=== PATIENT | female | born 1955 | race Caucasian/White ===

== ENCOUNTER 2020-07-12 06:30 | Day surgery (SDC) | payer OTHER ==
[~2020-07-12] VITALS: Ht 172.7 cm; Wt 63.5 kg
[~2020-07-12 06:30] MED LIST: LEVOTHYROXINE75 MCG PO
--- NOTE | 2020-07-12 10:57 | OR ---
[facility] [address], [place] [address] Signed DATE OF OPERATION: 07/12/2020 SURGEON: Breonna Huff MD DATE OF PROCEDURE: 07/12/2020 PREOPERATIVE DIAGNOSES: 1. Anemia. 2. Guaiac-positive stool. 3. Mother with colonic polyps in her late 70s or early 80s. POSTOPERATIVE DIAGNOSES: 1. A 7 mm polyp at 100 cm (transverse colon). 2. A 7 mm polyp opposite ileocecal valve/cecum (snare). 3. A 5 mm hepatic flexure polyp. 4. A 4 mm polyp at 7 cm. 5. Wvujgpd-is-vzessdys sigmoid diverticulosis. PROCEDURES: 1. Colonoscopy. 2. Snare polypectomy. 3. Hot biopsy. ESTIMATED BLOOD LOSS: None. INDICATIONS: Lottie is a 64-year-old female, who asked to see me with respect to her anemia and guaiac-positive stool. We also know her mother had colonic polyps removed in her late 70s or early 80s. Lottie tells me she has not been to a doctor in probably 45 years. She is very nervous about having the colonoscopy done. She also uses marijuana on a daily basis. I wonder that our simple Versed and fentanyl might not be enough to put her sleep. In fact, that proved to be true, we had to bring our anesthesia provider. We also gave her a pamphlet on colonoscopy in the office, and I went over that together in detail. She understands the nature of the test along with the risks including, but not limited to gas bloating, crampy abdominal pain, bleeding, perforation requiring surgery, and missed diagnosis. She had expressed understanding and wished to proceed. She understands there is risk including, but not limited to gas bloating, crampy abdominal pain, bleeding, perforation requiring surgery, and missed diagnosis. She Electronically Signed By: BREONNA HUFF MD 07/12/20 1057 PATIENT NAME: LOTTIE DEMARCO OPERATIVE REPORT DATE OF : 57 REPORT #: [id number] PHYSICIAN: BREONNA HUFF MD PCP: EDITH FLORES MD REPORT IS CONFIDENTIAL AND NOT TO BE RELEASED WITHOUT AUTHORIZATION [facility] [address], [place] [address] Signed expressed understanding and wished to proceed. PROCEDURE NOTE: Lottie was taken into our endoscopy suite and placed in the left lateral decubitus position, it was clear she was quite nervous. She was given 5 mg of Versed and 100 mcg of fentanyl. We could even get into the sigmoid colon. She was wide awake and talking to us and moving about the table. Consequently, we asked our anesthesia provider come and help us with monitored anesthesia care and infusion of propofol. In the end, that proved to be very allen as she took a large amount of propofol. A digital rectal exam had been done and this was unremarkable. The adult colonoscope was inserted and advanced under direct visualization of camera into the cecum itself. It took a few minutes to get through her somewhat narrow and tortuous sigmoid colon. Her prep was good. We could see the appendiceal orifice and the ileocecal valve. Opposite the ileocecal valve was a 7 mm polyp, which we removed with the help of the snare and hot biopsy forceps. It was captured in our trap and sent off to the Pathology Department. We also found a polyp coming in at around 100 cm that we removed with a hot biopsy forceps. We think it is in the transverse colon, but it is possible it is in the left colon. We never saw that biopsy site on our way back. We also took out a small 5 mm polyp at the hepatic flexure, and then a small 4 mm polyp at 7 cm in the rectum. She does have sigmoid diverticulosis. They were gbnxymm-kb-mmexzdxn in size, ueozasa-lk-uleqhkov in number, and scattered about. Upon retroflexion of scope, there was really no additional pathology noted above the anal canal. Overall, Lottie tolerated her procedure quite well. RECOMMENDATIONS: I will see Lottie back in my office in 7 to 14 days to review her results. It looks like she will be on the 5-year rotation. Breonna Huff MD ALB/MODL /[id number] cc: MD Breonna HINKLE MD Electronically Signed By: BREONNA HUFF MD 07/12/20 1057 PATIENT NAME: LOTTIE DEMARCO OPERATIVE REPORT DATE OF : 57 REPORT #: [id number] PHYSICIAN: BREONNA HUFF MD PCP: EDITH FLORES MD REPORT IS CONFIDENTIAL AND NOT TO BE RELEASED WITHOUT AUTHORIZATION [address] [address] Signed Copies: BREONNA HUFF MD ~ Electronically Signed By: BREONNA HUFF MD 07/12/20 1057 PATIENT NAME: LOTTIE DEMARCO OPERATIVE REPORT DATE OF : 57 REPORT #: [id number] PHYSICIAN: BREONNA HUFF MD PCP: EDITH FLORES MD REPORT IS CONFIDENTIAL AND NOT TO BE RELEASED WITHOUT AUTHORIZATION
--- NOTE | 2020-07-13 15:19 | PATH ---
[facility] [address] [place], [place] [address] Signed SPECIMEN(S): A TRANSVERSE POLYP SPECIMEN(S): B CECAL POLYP SPECIMEN(S): C HEPATIC FLEXURE POLYP SPECIMEN(S): D COLON POLYP AT 7 CM SPECIMEN SOURCE: A. TRANSVERSE POLYP B. CECAL POLYP C. HEPATIC FLEXURE POLYP D. COLON POLYP AT 7 CM CLINICAL HISTORY: Pre: Anemia, guaiac positive stool. Post: Polypectomy x4, diverticulosis. Colonoscopy. MICROSCOPIC DESCRIPTION: Histologic sections of all submitted blocks are examined by light microscopy. These findings, together with the gross examination, support the pathologic diagnosis. FINAL PATHOLOGIC DIAGNOSIS: A. Colon, transverse, polyp, polypectomy: - Fragments of tubular adenoma. - Negative for high-grade dysplasia or malignancy. B. Colon, cecum, polyp, polypectomy: - Fragments of tubulovillous adenoma. - Negative for high-grade dysplasia or malignancy. C. Colon, hepatic flexure, polyp, polypectomy: - Colonic mucosa with no histopathologic abnormality. - Negative for dysplasia or malignancy. D. Colon, polyp at 7 cm, polypectomy: - Hyperplastic polyp. - Negative for dysplasia or malignancy. NAL:cml:C2NR GROSS DESCRIPTION: Four specimens are received in four containers, labeled "CHALO." A. The specimen, labeled "CHALO, transverse colon polyp," is received in formalin and consists of two chavez soft tissue fragment(s) that measure 0.2 cm in greatest dimension. The specimen is entirely submitted in cassette (A1). B. The specimen, labeled "CHALO, cecum polyp," is received in formalin and PATIENT NAME: LOTTIE DEMARCO PATHOLOGY DATE OF : 57 REPORT #: [id number] PHYSICIAN: MARQUES PATHOLOGY PCP: EDITH FOLRES MD REPORT IS CONFIDENTIAL AND NOT TO BE RELEASED WITHOUT AUTHORIZATION [facility] [address] [place] [address] Signed consists of three chavez soft tissue fragment(s) that measure 0.6 cm in greatest dimension. The biggest tissue fragment is inked and bisected. The specimen is entirely submitted in cassette (B1). C. The specimen, labeled "CHALO, hepatic flexure polyp," is received in formalin and consists of one chavez soft tissue fragment that measures 0.1 cm in greatest dimension. The specimen is entirely submitted in cassette (C1). D. The specimen, labeled "CHALO, colon polyp at 7 cm," is received in formalin and consists of one chavez soft tissue fragment that measures 0.2 cm in greatest dimension. The specimen is entirely submitted in cassette (D1). JS (under the direct supervision of a pathologist) The Gross Description was prepared using a voice recognition system. The report was reviewed for accuracy; however, sound-alike word errors, addition and/or deletions may occur. If there is any question about this report, please contact Client Services. PERFORMING LABORATORY: The technical component was performed by [facility] [address] (Heel Emery Buffer: Ayla Mendoza MD; CLIA# [id number]). [facility] [address] [address] (CLIA# [id number]). Diagnostician: Vonda Vann MD Pathologist Electronically Signed 07/13/2020 Copies: ~ PATIENT NAME: LOTTIE DEMARCO PATHOLOGY DATE OF : 57 REPORT #: [id number] PHYSICIAN: [facility] PATHOLOG[facility] PCP: EDITH FLORES MD REPORT IS CONFIDENTIAL AND NOT TO BE RELEASED WITHOUT AUTHORIZATION
== END 2020-07-12 09:20 | disposition home or self-care (01) ==
LOC: OPS 06:30 → DS 06:30 → OPS 06:45 → DS 06:45 → OPS 09:20
PROVIDERS: ATTEND Colon & Rectal Surgery
PROC: 0DBE8ZZ Excision of Large Intestine, Via Natural or Artificial Opening Endoscopic (ICD-10-PCS; 2020-07-12)
PROC: 0DBL8ZZ Excision of Transverse Colon, Via Natural or Artificial Opening Endoscopic (ICD-10-PCS; 2020-07-12)
PROC: 0DBH8ZZ Excision of Cecum, Via Natural or Artificial Opening Endoscopic (ICD-10-PCS; principal; 2020-07-12 06:45)
DX: D12.3 Benign neoplasm of transverse colon (principal); D12.0 Benign neoplasm of cecum; K57.30 Diverticulosis of large intestine without perforation or abscess without bleeding; N18.3 Chronic kidney disease, stage 3 (moderate); D63.1 Anemia in chronic kidney disease; E78.5 Hyperlipidemia, unspecified; E03.9 Hypothyroidism, unspecified; Z83.71 Family history of colonic polyps; Z79.899 Other long term (current) drug therapy
CPT/HCPCS: J2250; J2704; J3010; J7121

== ENCOUNTER 2025-08-10 07:00 | Day surgery (SDC) | payer MEDICARE, OTHER ==
[2025-03-21 16:00] VITALS: BP 124/97
[2025-08-07 08:58] VITALS: BP 124/97
[~2025-08-10] VITALS: Ht 172.7 cm; Wt 66.0 kg
[~2025-08-10 07:00] MED LIST changes: +IBLOOD GLUCOSE TEST STRIP 1 EA TEST VI PRN; +LACTATED RINGER'S 1,000 ML IV SCH; +LIDOCAINE HCL 1% 5 ML SDV INJ ONE; +MIDAZOLAM HCL 5 MG/5 ML VIAL IV PRN; +MULTI VITAMIN1 EACH PO; +fentaNYL citrate 100 MCG/2 ML VIAL IV PRN
[2025-08-10 07:12] VITALS: BP 116/76
--- NOTE | 2025-08-10 07:33 | NUR ---
PT NOT AVAILABLE FOR VISIT. PROVIDED PRAYER.
[2025-08-10] MEDS ORDERED: LIDOCAINE HCL 2% 5 ML SDV ONE (08:45)
[2025-08-10] MEDS ORDERED: KETAMINE in NS 50 MG/5 ML SYR ONE (09:38)
--- NOTE | 2025-08-10 10:04 | NUR ---
08/10/25 Amaya4 Kavya Rendon 1000-PATIENT ARRIVED TO PACU ON 6L MASK RR EVEN NONAROUSABLE LAYING LEFT LATERAL ABDOMEN SOFT IVF INFUSING. SR HR 80'S.
[2025-08-10 10:42] VITALS: BP 120/77
--- NOTE | 2025-08-14 11:00 | PATH ---
[facility] [address] [place], [place] [address] Signed SPECIMEN(S): A COLON POLYP @ 16CM SPECIMEN SOURCE: A. COLON POLYP @ 16CM CLINICAL HISTORY: Surveillance, history of polyps. Post-polyp A) polyp FINAL PATHOLOGIC DIAGNOSIS: Colon polyp at 16 cm: - Hyperplastic polyp. JVR MICROSCOPIC EXAMINATION: Histologic sections of all submitted blocks are examined by light microscopy. These findings, together with the gross examination, support the pathologic diagnosis. GROSS DESCRIPTION: The specimen, labeled and designated "Chu colon polyp at 16 cm," is received in formalin and consists of one chavez soft tissue fragment, 0.2 cm. Entirely submitted in (A1). AB (under the direct supervision of a pathologist) The Gross Description was prepared using a voice recognition system. The report was reviewed for accuracy; however, sound-alike word errors, addition and/or deletions may occur. If there is any question about this report, please contact Client Services. ADDITIONAL NOTES: Immunohistochemical and/or in situ hybridization studies if performed in this case included appropriate positive controls that reacted as expected. This test was developed and its performance characteristics determined by [facility]. It has not been cleared or approved by the U.S. Food and Drug Administration. The FDA has determined that such clearance or approval is not necessary. This test is used for clinical purposes. It should not be regarded as investigational or for research. [facility] is certified under the Clinical Laboratory Improvement Amendments of 1988 (CLIA) as qualified to perform high complexity clinical laboratory testing. PATIENT NAME: LOTTIE DEMARCO PATHOLOGY DATE OF : 57 REPORT #: [id number] PHYSICIAN: MARQUES MERCADO PCP: TITUS NUNEZ PA-C REPORT IS CONFIDENTIAL AND NOT TO BE RELEASED WITHOUT AUTHORIZATION [address] [place], [place] [address] Signed PERFORMING LABORATORY: Technical component was performed by [facility], [address] [place] [address] (CLIA# [id number]). Professional interpretation was performed by [email or web address] - [address] [place] [address] (CLIA#: [id number]). Diagnostician: Antonio Baker MD Pathologist Electronically Signed 08/14/2025 Copies: ~ PATIENT NAME: LOTTIE DEMARCO PATHOLOGY DATE OF : 57 REPORT #: [id number] PHYSICIAN: MARQUES MERCADO PCP: TITUS NUNEZ PA-C REPORT IS CONFIDENTIAL AND NOT TO BE RELEASED WITHOUT AUTHORIZATION
== END 2025-08-10 10:50 | disposition home or self-care (01) ==
LOC: DS 07:00 → OPS 07:00
PROVIDERS: ATTEND Surgery
PROC: 0DBP8ZZ Excision of Rectum, Via Natural or Artificial Opening Endoscopic (ICD-10-PCS; principal; 2025-08-10 08:30)
DX: Z12.11 Encounter for screening for malignant neoplasm of colon (principal); K62.1 Rectal polyp; K57.30 Diverticulosis of large intestine without perforation or abscess without bleeding; K64.9 Unspecified hemorrhoids; N18.31 Chronic kidney disease, stage 3a; Z86.0101 Personal history of adenomatous and serrated colon polyps; Z88.5 Allergy status to narcotic agent; Z91.09 Other allergy status, other than to drugs and biological substances
CPT/HCPCS: 00811; J2003; J2704; J3490; J7121